=== PATIENT | male | born 1980 | race Caucasian/White ===

== ENCOUNTER → 2020-04-23 | Outpatient (CLI) | payer OTHER ==
--- NOTE | 2020-04-23 15:48 | RAD ---
Left wrist 3 views: Reason for examination: Wrist pain after fall. Comparison is made with 3 views of the left hand dated 04/10/2020. There is a small ossific density seen at the dorsum of the wrist which could represent a small avulsi on fracture from the triquetral bone but is unchanged when compared to previous examination of the le ft hand. No other site of fracture or dislocation is seen. Bone density is normal. No abnormal perios teal reaction is seen. Joint spaces are maintained. IMPRESSION: Small ossific density on the dorsum of the wrist possibly off the triquetral bone which is unchanged from previous exam. No acute abnormality evident at the left wrist. Electronically signed by: Sindy Oquendo MD (04/23/2020 3:45 PM) [facility]
== END ==
LOC: RAD 13:06
PROVIDERS: ATTEND Physician Assistant
DX: M25.532 Pain in left wrist (principal)
CPT/HCPCS: 73110